=== PATIENT | male | born 1975 | race Caucasian/White ===

== ENCOUNTER 2021-11-18 02:11 | Emergency (ER) | payer SELFPAY ==
[~2021-11-18] VITALS: Ht 165.1 cm; Wt 68.0 kg
[2021-11-18 02:21] VITALS: BP 132/78
== END 2021-11-18 04:29 | disposition left against medical advice (07) ==
LOC: ER 02:43
DX: Z53.21 Procedure and treatment not carried out due to patient leaving prior to being seen by health care provider (principal)